=== PATIENT | male | born 1965 | race Caucasian/White ===

== ENCOUNTER 2021-08-09 21:57 | Emergency (ER) | payer OTHER, SELFPAY ==
[2021-08-09 22:05] VITALS: BP 128/79; PULSE 64; RESP 22; TEMP 37; O2SAT 96; BMI 28.8
[2021-08-09 22:16] VITALS: PULSE 66; RESP 28; O2SAT 96
[2021-08-09 22:17] VITALS: BP 127/77; PULSE 66; RESP 25; O2SAT 96
[2021-08-09] MEDS: SODIUM CHLORIDE 0.9% 1,000 ML 1000 ML IV (22:18)
[2021-08-09 22:30] VITALS: BP 130/74; PULSE 62; RESP 27; O2SAT 97
--- NOTE | 2021-08-09 22:35 | ED.GENADULT ---
HPI - General Adult General Chief complaint: Syncope Stated complaint: stomach issues,lightheaded, passed out,Vomiting Time Seen by Provider: 08/09/21 22:07 Source: patient Mode of arrival: Ambulatory Limitations: no limitations History of Present Illness HPI narrative: Patient is a 56-year-old male. He states that earlier this evening he was sitting on a chair watching TV when he had some discomfort in his stomach. He describes it as a cramping sensation. He went into the bathroom to have a bowel movement. He states that he did have a loose bowel movement but was not diarrhea. He stated that while he was using the bathroom he became very lightheaded. He has had vasovagal syncope in the past and he felt like this was what was going to happen to him again. He called for his . He was helped to the floor. He did not fall. Did not hit his head. states that he was unconscious for less than 1 minute. He states that currently his abdominal pain is gone. No nausea vomiting. No recent travel. No recent antibiotics. No urinary symptoms. No chest pain. No palpitations. No shortness of breath. No headache. Related Data Allergies Allergy/AdvReac Type Severity Reaction Status Date / Time No Known Drug Allergies Allergy Verified 08/09/21 22:05 Review of Systems Constitutional Constitutional: Reports as per HPI and Reports system reviewed and no additional complaints, except as documented ENT Ears, Nose, Mouth, and Throat: Reports system reviewed and no additional complaints, except as documented Cardiovascular Cardiovascular: Reports as per HPI and Reports system reviewed and no additional complaints, except as documented Respiratory Respiratory: Reports as per HPI and Reports system reviewed and no additional complaints, except as documented Gastrointestinal Gastrointestinal: Reports as per HPI and Reports system reviewed and no additional complaints, except as documented Genitourinary Genitourinary: Reports system reviewed and no additional complaints, except as documented Musculoskeletal Musculoskeletal: Reports system reviewed and no additional complaints, except as documented and Reports as per HPI Integumentary/Breasts Skin/Breast: Reports system reviewed and no additional complaints, except as documented Neurologic Neurologic: Reports system reviewed and no additional complaints, except as documented Psychiatric Psychiatric: Reports system reviewed and no additional complaints, except as documented Hematologic/Lymphatic On Anticoagulants: No Allergic/Immunologic Allergic/Immunologic: Reports system reviewed and no additional complaints, except as documented Patient History Medical History Vasovagal syncope Social History Smoking Status: Never smoker Smoking Status: Never smoker alcohol intake frequency: holidays/special occasions only Substance Use Type: does not use Exam Initial Vital Signs Initial Vital Signs: Vital Signs Temperature 98.6 F 08/09/21 22:05 Pulse Rate 64 08/09/21 22:05 Respiratory Rate 22 08/09/21 22:05 Blood Pressure 128/79 08/09/21 22:05 Pulse Oximetry 96 08/09/21 22:05 Const General: cooperative and comfortable HENMT Head: normal to inspection Eyes General: appearance normal, both eyes and all related structures Resp Effort & Inspection: normal respiratory effort Auscultation: clear to auscultation bilaterally Cardio Rate: regular rate Rhythm: regular rhythm GI Inspection: normal to inspection Palpation: soft and No tender Skin General: no rashes or lesions noted Neuro General: patient alert, patient awake, patient oriented x3 and moves all extremities Speech: speech normal Gait: normal gait Motor: muscle tone normal throughout Extrem General: normal to inspection and capillary refill normal Psych Appearance: grossly normal and well kempt Course Orders Ordered: ED Orders 08/09/21 22:08 EKG-12 Lead Stat 08/09/21 22:21 Complete Blood Count AUTO DIFF Stat Comprehensive Metabolic Panel Stat Lipase Stat Discontinued Medications Sodium Chloride (Normal Saline 0.9%) 1,000 mls @ 1,000 mls/hr IV BOLUS ONE Stop: 08/09/21 23:06 Last Infusion: 08/09/21 23:27 Dose: 0 mls/hr Documented by: Admin: 08/09/21 22:18 Dose: 1,000 mls/hr Documented by: JERSON Vital Signs Vital signs: Vital Signs - 8 hr 08/09/21 22:05 08/09/21 22:16 08/09/21 22:17 Temperature 98.6 F Pulse Rate 64 66 66 Respiratory Rate 22 28 H 25 H Blood Pressure 128/79 127/77 Pulse Oximetry 96 96 96 08/09/21 22:30 08/09/21 23:00 08/09/21 23:30 Temperature Pulse Rate 62 66 70 Respiratory Rate 27 H 21 25 H Blood Pressure 130/74 121/68 126/74 Pulse Oximetry 97 97 97 Medical Decision Making Lab Data Lab results reviewed: Yes I reviewed the patient's lab results. Result diagrams: 08/09/21 22:21 08/09/21 22:21 Labs: Lab Results 08/09/21 08/09/21 Range/Units 22:21 22:21 WBC 7.9 (4.5-11.0) X10^3/uL RBC 5.11 (4.5-5.9) X10^6/uL Hgb 15.3 (13.5-17.5) g/dL Hct 44.5 (41-53) % MCV 87.1 (80-100) fL MCH 29.9 (26-34) PG MCHC 34.4 (30-36) % RDW 13.8 (11.6-14.8) % Plt Count 268 (150-400) X10^3/uL Neut % (Auto) 60.7 (50-75) % Lymph % (Auto) 25.8 (25-40) % [place] % (Auto) 6.9 (3-14) % Eos % (Auto) 5.4 H (2-4) % Baso % (Auto) 1.2 (0-2) % Neut # (Auto) 4800 (7498-7854) /uL Lymph # (Auto) 2000 (8833-8694) /uL [place] # (Auto) 500 (0-900) /uL Eos # (Auto) 400 (0-450) /uL Baso # (Auto) 100 (0-100) /uL Sodium 139 (137-145) mmol/L Potassium 3.4 (3.4-5.1) mmol/L Chloride 106 (98-107) mmol/L Carbon Dioxide 26 (22-32) mmol/L BUN 22 H (9-20) mg/dL Creatinine 1.12 (0.66-1.25) mg/dL Estimated GFR > 60.0 (>60) mL/min BUN/Creatinine Ratio 19.6 (6-22) Glucose 166 H (70-100) mg/dL Calcium 9.5 (8.4-10.2) mg/dL Total Bilirubin 0.4 (0.2-1.3) mg/dL AST 55 (17-59) IU/L ALT 57 H (<50) IU/L Alkaline Phosphatase 51 (38-126) U/L Total Protein 6.9 (6.3-8.2) g/dL Albumin 4.1 (3.5-5.0) g/dL Globulin 2.8 (1.7-4.1) g/dL Albumin/Globulin Ratio 1.5 (1.0-2.8) Lipase 155 (23-300) U/L ECG Data Attestation: I personally reviewed and interpreted this ECG as follows: Interpretation: Sinus rhythm Ventricular rate is 63 Normal axis Normal QRS Normal QTC No ST T wave changes MDM Narrative Medical decision making narrative: Labs unremarkable. Was asymptomatic here in the emergency department. Afebrile. Benign abdominal exam. Do suspect that the syncopal episode was a vasovagal syncope most likely related to the discomfort he was having in his abdomen. Based on his labs in his exam today I do feel that we should hold on a CT scan. Low suspicion for acute surgical intra-abdominal issue. Patient was given fluids. Will discharge home with strict return precautions. He expressed understanding and agreement. Discharge Plan Departure Patient Disposition: Home Clinical Impression: Vasovagal syncope, Abdominal pain Instructions: DI for Syncope in Adults (Fainting), DI for Abdominal Pain-Adult Activity Restrictions/Additional Instructions: Your labs today are very reassuring. Same with your EKG. I would not be surprised if you develop some loose stools over the next 24 hours. If this happens be sure to increase your fluid intake. If your abdominal pain worsens or you start getting fevers or pass out again please return to the emergency department for further evaluation.
[2021-08-09 22:38] LABS: Add Manual Diff / Slide Review NO; Basophils Absolute Auto 100 /uL (0-100); Basophils Percent Auto 1.2 % (0-2); Eosinophils Absolute Auto 400 /uL (0-450); Eosinophils Percent Auto 5.4 % (2-4); Hematocrit 44.5 % (41-53); Hemoglobin 15.3 g/dL (13.5-17.5); Lymphocytes Absolute Auto 2000 /uL (1100-4500); Lymphocytes Percent Auto 25.8 % (25-40); Mean Corpuscular HGB Conc 34.4 % (30-36); Mean Corpuscular Hemoglobin 29.9 PG (26-34); Mean Corpuscular Volume 87.1 fL (80-100); Monocytes Absolute Auto 500 /uL (0-900); Monocytes Percent Auto 6.9 % (3-14); Neutrophils Absolute Auto 4800 /uL (1500-7000); Neutrophils Percent Auto 60.7 % (50-75); Platelet Count 268 X10^3/uL (150-400); Red Blood Cell Count 5.11 X10^6/uL (4.5-5.9); Red Cell Distribution Width 13.8 % (11.6-14.8); White Blood Cell Count 7.9 X10^3/uL (4.5-11.0)
[2021-08-09 22:42] LABS: Alanine Aminotransferase 57 IU/L (<50); Albumin 4.1 g/dL (3.5-5.0); Albumin Globulin Ratio 1.5 (1.0-2.8); Alkaline Phosphatase 51 U/L (38-126); Aspartate Aminotransferase 55 IU/L (17-59); BUN Creatinine Ratio 19.6 (6-22); Bilirubin Total 0.4 mg/dL (0.2-1.3); Blood Urea Nitrogen 22 mg/dL (9-20); Calcium 9.5 mg/dL (8.4-10.2); Carbon Dioxide 26 mmol/L (22-32); Chloride 106 mmol/L (98-107); Estimated Glomerular Filt Rate > 60.0 mL/min (>60); Globulin 2.8 g/dL (1.7-4.1); Glucose 166 mg/dL (70-100); HEMOLYSIS 26 (0-50); Lipase 155 U/L (23-300); Potassium 3.4 mmol/L (3.4-5.1); Sodium 139 mmol/L (137-145); Total Protein 6.9 g/dL (6.3-8.2)
[2021-08-09 23:00] VITALS: BP 121/68; PULSE 66; RESP 21; O2SAT 97
[2021-08-09 23:30] VITALS: BP 126/74; PULSE 70; RESP 25; O2SAT 97
== END 2021-08-09 23:43 | disposition home or self-care (01) ==
PROVIDERS: Emergency Provider Emergency Medicine
DX: R55 Syncope and collapse (principal); R10.9 Unspecified abdominal pain
CPT/HCPCS: 36415; 80053; 83690; 85025; 93005; 96360; 99284